=== PATIENT | male | born 1995 | race Caucasian/White ===

== ENCOUNTER 2021-12-08 09:38 | Day surgery (SDC) | payer OTHER ==
[2021-12-08 10:32] LABS: BASOPHILS # (AUTO) 0.1 10^3/uL (0.0-0.1); BASOPHILS % (AUTO) 0.4 %; EOSINOPHILS # (AUTO) 0.1 10^3/uL (0.0-0.7); EOSINOPHILS % (AUTO) 0.3 %; HCT - HEMATOCRIT 46.8 % (42.0-52.0); HGB - HEMOGLOBIN 16.1 g/dL (14.0-18.0); LYMPHOCYTES # (AUTO) 1.2 10^3/uL (1.5-3.5); LYMPHOCYTES % (AUTO) 5.8 %; MEAN CORPUSCULAR HEMOGLOBIN 30.3 pg (27.0-31.0); MEAN CORPUSCULAR HGB CONC 34.4 g/dL (32.0-36.0); MEAN PLATELET VOLUME 9.3 fL (7.4-11.4); MONOCYTES # (AUTO) 0.8 10^3/uL (0.0-1.0); MONOCYTES % (AUTO) 3.7 %; NEUTROPHILS # (AUTO) 18.4 10^3/uL (1.5-6.6); NEUTROPHILS % (AUTO) 89.3 %; PLT - PLATELET COUNT 301 10^3/uL (130-450); RED BLOOD COUNT 5.32 10^6/uL (4.70-6.10); RED CELL DISTRIBUTION WIDTH 12.7 % (12.0-15.0); WHITE BLOOD COUNT 20.6 x10^3/uL (4.8-10.8)
[2021-12-08 10:33] LABS: SLIDE REVIEW? Indicated
[2021-12-08 10:46] LABS: ALBUMIN 5.1 g/dL (3.2-5.5); ALBUMIN/GLOBULIN RATIO 1.5 (1.0-2.2); BILIRUBIN,TOTAL 0.9 mg/dL (0.2-1.0); CALCIUM 9.8 mg/dL (8.5-10.3); CREATININE 0.9 mg/dL (0.6-1.2); TOTAL PROTEIN 8.4 g/dL (6.7-8.2)
[2021-12-08 11:02] LABS: PLATELET ESTIMATE, MANUAL NORMAL (130-450,000) (NORMAL); PLATELET MORPHOLOGY NORMAL APPEARANCE (NORMAL); RBC MORPHOLOGY (MULTIPLE) NORMAL APPEARANCE (NORMAL)
[2021-12-08] MEDS ORDERED: ONDANSETRON 4 MG/2 ML VIAL IVP STA (12:42)
[2021-12-08] MEDS ORDERED: HYDROmorphone 1 MG/ML CARPUJECT IVP STA ×2 (12:42→15:12)
[2021-12-08] MEDS ORDERED: SODIUM CHLORIDE 0.9% 1,000 ML IV STA (12:42)
--- NOTE | 2021-12-08 12:42 | ED Physician Documentation ---
History of Present Illness - Stated complaint Stated Complaint: ABD PX - Chief complaint Chief Complaint: Abd Pain - Additonal information Additional information: 18-year-old male presents emergency department for evaluation of sudden onset epigastric abdominal pain that radiates to the right lower quadrant. Symptoms began about 6 AM. No history of similar. Patient states he woke up went to drink water and noted that he had pain in his upper abdomen. He immediately vomited the water. Over the course of symptoms the epigastric pain has resolved but now he has a persistent pain in the right lower quadrant. He has been unable to keep anything down. No diarrhea. No history of similar. No pertinent past surgical history. Takes no prescribed medications. Review of Systems Constitutional: reports: Reviewed and negative Ears: reports: Reviewed and negative Nose: reports: Reviewed and negative Cardiac: reports: Reviewed and negative Respiratory: reports: Reviewed and negative GI: reports: Abdominal Pain, Nausea : reports: Reviewed and negative Skin: reports: Reviewed and negative PD PAST MEDICAL HISTORY - Present Medications Home Medications: Ambulatory Orders Medication Instructions Recorded Confirmed No Known Home Medications 12/08/21 12/08/21 - Allergies Allergies/Adverse Reactions: Allergies Allergy/AdvReac Type Severity Reaction Status Date / Time No Known Drug Allergies Allergy Verified 12/08/21 10:07 PD ED PE NORMAL - General General: Alert and oriented X 3, No acute distress - HEENT HEENT: Atraumatic, Ears normal, Moist mucous membranes - Neck Neck: Supple, no meningeal sign, No adenopathy - Cardiac Cardiac: RRR, No murmur - Respiratory Respiratory: No respiratory distress - Abdomen Abdomen: Normal bowel sounds, Soft, Non distended. No: Non tender (Equivocal McBurney's. ) - Back Back: No CVA TTP, No spinal TTP - Derm Derm: Normal color, Warm and dry, No rash - Extremities Extremities: No deformity - Neuro Neuro: Alert and oriented X 3, customer resource specialist 2-12 intact Eye Opening: Spontaneous Motor: Obeys Commands Verbal: Oriented GCS Score: 15 - Psych Psych: Normal mood Results - Vitals Vitals: Vital Signs - 24 hr 12/08/21 12/08/21 10:03 13:05 Temperature 36.3 C L Heart Rate 70 81 Respiratory 17 18 Rate Blood Pressure 141/95 H 162/80 H O2 Saturation 97 98 Oxygen O2 Source Room air - Labs Labs: Laboratory Tests 12/08/21 12/08/21 12/08/21 10:29 10:29 12:02 WBC 20.6 H RBC 5.32 Hgb 16.1 Hct 46.8 MCV 88.0 MCH 30.3 MCHC 34.4 RDW 12.7 Plt Count 301 MPV 9.3 Neut # (Auto) 18.4 H Lymph # (Auto) 1.2 L [place] # (Auto) 0.8 Eos # (Auto) 0.1 Baso # (Auto) 0.1 Absolute Nucleated RBC 0.00 Nucleated RBC % 0.0 Manual Slide Review Indicated WBC Morphology Platelet Estimate NORMAL (130-450,000) Platelet Morphology NORMAL APPEARANCE RBC Morph Micro Appear NORMAL APPEARANCE Sodium 140 Potassium 4.0 Chloride 104 Carbon Dioxide 26 Anion Gap 10.0 BUN 11 Creatinine 0.9 Estimated GFR (MDRD) 100 Glucose 120 H Calcium 9.8 Total Bilirubin 0.9 AST 37 ALT 88 H Alkaline Phosphatase 52 Total Protein 8.4 H Albumin 5.1 Globulin 3.4 Albumin/Globulin Ratio 1.5 Lipase 32 Urine Color YELLOW Urine Clarity CLEAR Urine pH 6.0 Ur Specific [place] >=1.030 H Urine Protein NEGATIVE Urine Glucose (UA) NEGATIVE Urine Ketones >=80 H Urine Occult Blood NEGATIVE Urine Nitrite NEGATIVE Urine Bilirubin NEGATIVE Urine Urobilinogen 0.2 (NORMAL) Ur Leukocyte Esterase NEGATIVE Ur Microscopic Review NOT INDICATED Urine Culture Comments NOT INDICATED - Rads (name of study) CT of the abdomen Radiology: Final report received (Acute appendicitis. ) PD MEDICAL DECISION MAKING - ED course Complexity details: reviewed results, re-evaluated patient, considered differential, d/w patient, d/w sap bw consultant (Kendrick) ED course: 18-year-old male presents emergency department for evaluation of acute epigastric pain that radiated to his right lower quadrant. Symptoms began about 6 AM when he attempted to drink water when he woke up. He attempted to drink water about 1 hour later but continued to vomit and with the lower quadrant pain then presented to the emergency department. On exam he has an equivocal McBurney's. CBC shows modest leukocytosis of 20,000. CT scan showed an acute uncomplicated appendicitis. I briefly discussed this case with on-call surgeon Dr. Hughes who is able to take this patient to surgery later this afternoon. The patient remains n.p.o. since early this a.m. COVID-19 is pending. We have ordered 1 dose of Zosyn as well as IV Tylenol. Pain is improved and the patient after receiving Dilaudid and Zofran. He and his partner were made aware of the clinical findings and plan to operate. Further care to be dictated by the OR staff Departure - Departure Disposition: ED Transfer to [facility] Clinical Impression: Acute appendicitis Qualifiers: Acute appendicitis type: unspecified acute appendicitis type Qualified Code(s): K35.80 - Unspecified acute appendicitis
[2021-12-08 13:04] LABS: BILIRUBIN,URINE NEGATIVE (NEGATIVE); GLUCOSE, URINE (UA) NEGATIVE (NEGATIVE); KETONES,URINE (UA) >=80 mg/dL (NEGATIVE); LEUKOCYTE ESTERASE, URINE NEGATIVE (NEGATIVE); NITRITE,URINE NEGATIVE (NEGATIVE); OCCULT BLOOD,URINE NEGATIVE (NEGATIVE); PROTEIN,URINE NEGATIVE (NEGATIVE); UROBILINOGEN,URINE 0.2 (NORMAL) E.U./dL (NORMAL)
[2021-12-08 13:06] LABS: CLARITY,URINE CLEAR (CLEAR)
--- NOTE | 2021-12-08 13:51 | CT Report ---
PROCEDURE: Abdomen/Pelvis W INDICATIONS: RLQ pain CONTRAST: IV CONTRAST: Optiray 320 ml: 100 PO CONTRAST: *NO PO CONTRAST TECHNIQUE: After the administration of IV contrast, 5 mm thick sections acquired from the diaphragms to the symp hysis. 5 mm thick coronal and sagittal reformats were acquired. For radiation dose reduction, the f ollowing was used: automated exposure control, adjustment of mA and/or kV according to patient size. COMPARISON: None. FINDINGS: Image quality: Excellent. ABDOMEN: Lung bases: Lung bases are clear. Heart size is normal. Solid organs: Liver and spleen are normal in size and enhancement. Gallbladder is within normal [place] its Biliary system is non dilated. Pancreas enhances normally. No adrenal nodules. Kidneys demons trate normal size and enhancement, without hydronephrosis. Peritoneum and bowel: Bowel loops demonstrate normal wall thickness and caliber. The appendix is di stended, measuring 10 mm and demonstrates mild surrounding fat stranding as well as mural hyperemia N o free fluid or air. Nodes and vessels: No retroperitoneal or mesenteric adenopathy by size criteria. Aorta and inferior vena cava are normal in size. Miscellaneous: No ventral hernias. PELVIS: Genitourinary: Bladder wall thickness is normal. Miscellaneous: No inguinal hernias or adenopathy. Bones: No suspicious bony lesions. Bilateral L5-S1 pars interarticularis defects. Minimal grade 1 an terolisthesis of L5 on S1. No vertebral body compression fractures. IMPRESSION: 1. Acute appendicitis. Findings discussed with Shani in the ER on 12/08/2021 at 1348 hours. She unders tood the urgent nature of the findings and agreed to communicate them to Dr. Avila assessment is p ossible. 2. Grade 1 isthmic spondylolisthesis at L5-S1. Reviewed by: Richard Fajardo MD on 12/08/2021 1:50 PM PDT Approved by: Richard Fajardo MD on 12/08/2021 1:50 PM PDT Station ID: [id number]
[2021-12-08] MEDS ORDERED: PIPERACILLIN/TAZOBACTAM 3.375 GM in SODIUM CHLORIDE 0.9% MINIBAG 100 ML IV STA (14:03)
[2021-12-08] MEDS ORDERED: ACETAMINOPHEN 1,000 MG/100 ML 1,000 MG/100 ML BAG IV ONE (14:08)
--- NOTE | 2021-12-08 15:02 | SURGERY HX AND PHYSICAL(T) ---
Surgical History & Physical - Chief Complaint/HPI Chief Complaint: abdominal pain History of Present Illness: This is a very pleasant 26-year-old gentleman who reports acute onset abdominal pain that woke him from sleep at approximately 3 AM this morning. At that time, the pain was epigastric and sharp in nature. He woke up again about an hour later with periumbilical pain and again went back to sleep. At approximately 5 AM, the patient woke up and had a sip of water. He then had nausea and immediately vomited up the water that he had drank. About an hour after that he reports waking up and doing the same thing again, drinking water and vomiting. At that time, he noted the pain had migrated to his right lower quadrant and had become more severe. He also noted that he was feeling chilled. He had a bowel movement this morning which was normal for him and did not contain any blood. He denies any recent sick contacts. He has never had similar pain in the past. - PMH/PSH/Social Hx Does the pt have a hx of MRSA?: No Neurological History: None Eyes, Ears, Nose, Throat: None Cardiovascular: None Respiratory: None Skin: None Endocrine/Autoimmune: None Gastrointestinal: None Urinary: None Musculoskeletal: None Blood Disorders: None Psychiatric: None Smoking Status: Never smoker Does the pt drink ETOH?: Yes Frequency: Occasional Does the pt have substance abuse?: Yes Substance Use and Type: Marijuana - Family Hx Family Hx: Unremarkable, Other (Dad: Multiple sclerosis No family history of colon cancer or inflammatory bowel disease.) - Home Meds and Allergies Home Medications: No Known Home Medications 12/08/21 Allergies/Adverse Reactions: Allergies Allergy/AdvReac Type Severity Reaction Status Date / Time No Known Drug Allergies Allergy Verified 12/08/21 10:07 - Review of Systems Constitutional: Other (A complete 10 point review of symptoms is otherwise negative except for that noted in HPI and PMH.) - Vital Signs Heart Rate: 81 Blood Pressure: 162/80 Temperature: 36.3 C Respiratory Rate: 18 O2 Saturation: 98 Weight (kg): 140.614 kg Height: 1.89 m - Physical Exam General Appearance: positive: No acute distress, Alert Eyes Bilatera: positive: Normal inspection ENT: positive: ENT inspection nml Neck: positive: Nml inspection Respiratory: positive: Chest non-tender, No respiratory distress Cardiovascular: positive: Regular rate & rhythm, No murmur Peripheral Pulses: positive: 2+ Abdomen: positive: No distention, Tenderness (Positive Rovsing, exquisite right lower quadrant tenderness to palpation over McBurney's point.), Guarding (Voluntary), Other (Obese). negative: Rebound, Mass Skin: positive: Color nml Extremities: positive: Non-tender Neurologic/Psychiatric: positive: Oriented x3 - Patient Review Patient Review: Problems were reviewed with the patient during this visit. Medications were reviewed with the patient during this visit. Allergies were reviewed this patient during this visit. Pertinent Tests Reviewed: All pertitent test for this patient were reviewed. - Assessment & Plan Assessment and Plan: This is a 26-year-old male with: 1. Acute appendicitis The patient's history, physical exam, laboratory studies, and imaging are consistent with acute appendicitis. He does not have any signs of perforation on the CT scan. I have personally reviewed the images and report from his CT scan. I discussed these findings with the patient. We discussed the risks, benefits, and alternatives of laparoscopic appendectomy including bleeding, infection, damage to surrounding structures, and the need for further surgeries or procedures. The patient voiced understanding, his questions were answered, and he wished to proceed with surgery. We also discussed the postoperative plan, and the possibility of abscess with or without surgery. A consent was signed by the patient in the preoperative area. The patient has been given preoperative antibiotics and ERS protocol. The patient has been n.p.o. since approximately 7 AM today The plan is for emergent laparoscopic appendectomy. Postoperatively, we will determine the need for postoperative antibiotics depending on whether or not the patient's appendix is ruptured. I anticipate he will be able to discharge home this evening.
[2021-12-08] MEDS ORDERED: LACTATED RINGERS 1,000 ML IV ONE ×2 (15:14→18:13)
[2021-12-08] MEDS ORDERED: HYDROmorphone 1 MG/ML CARPUJECT ONE (15:22)
--- NOTE | 2021-12-08 15:38 | ANESTHESIA ---
Pre-Anesthesia VS, & Labs - Diagnosis appendicitis - Procedure laparoscopic appendectomy Vital Signs: Temp Pulse Resp BP Pulse Ox O2 Flow Rate 36.4 C L 72 16 153/81 H 98 12/08/21 15:15 12/08/21 15:15 12/08/21 15:15 12/08/21 15:15 12/08/21 15:15 Height: 6 ft 2 in Weight (kg): 140 kg Body Mass Index: 39.6 BMI Classification: Obese - NPO >8 hours - Lab Results Current Lab Results: Laboratory Tests 12/08/21 10:29: Sodium 140, Potassium 4.0, Chloride 104, Carbon Dioxide 26, Anion Gap 10.0, BUN 11, Creatinine 0.9, Estimated GFR (MDRD) 100, Glucose 120 H, Calcium 9.8, Total Bilirubin 0.9, AST 37, ALT 88 H, Alkaline Phosphatase 52, Total Protein 8.4 H, Albumin 5.1, Globulin 3.4, Albumin/Globulin Ratio 1.5, Lipase 32 12/08/21 10:29: WBC 20.6 H, RBC 5.32, Hgb 16.1, Hct 46.8, MCV 88.0, MCH 30.3, MCHC 34.4, RDW 12.7, Plt Count 301, MPV 9.3, Neut # (Auto) 18.4 H, Lymph # (Auto) 1.2 L, [place] # (Auto) 0.8, Eos # (Auto) 0.1, Baso # (Auto) 0.1, Absolute Nucleated RBC 0.00, Nucleated RBC % 0.0, Manual Slide Review Indicated, WBC Morphology , Platelet Estimate NORMAL (130-450,000), Platelet Morphology NORMAL APPEARANCE, RBC Morph Micro Appear NORMAL APPEARANCE Fish Bones: 12/08/21 10:29 12/08/21 10:29 Home Medications and Allergies Home Medications: Ambulatory Orders No Known Home Medications 12/08/21 No Known Home Medications 12/08/21 Allergies/Adverse Reactions: Allergies Allergy/AdvReac Type Severity Reaction Status Date / Time No Known Drug Allergies Allergy Verified 12/08/21 10:07 Anes History & Medical History - Anesthetic History Anesthesia Complications: reports: No previous complications - Medical History Cardiovascular: reports: None Pulmonary: reports: None Gastrointestinal: reports: None Urinary: reports: None Neuro: reports: None Musculoskeletal: reports: None Endocrine/Autoimmune: reports: None Blood Disorders: reports: None Skin: reports: None Smoking Status: Never smoker Psychosocial: reports: Alcohol (once a week) History of Cancer?: No Exam General: Alert, Oriented x3, Cooperative Dental: WNL Mouth Opening: Greater than 4 Fingerbreadths Neck Mobility: Normal Mallampati classification: I Respiratory: Lungs clear Cardiovascular: Regular rate Plan Anesthesia Type: General Consent for Procedure(s) Verified and Reviewed: Yes Code Status: Attempt Resuscitation ASA classification: 2-Mild systemic disease Is this case an emergency?: Yes
[2021-12-08] MEDS ORDERED: ePHEDrine 50 MG/ML VIAL IVP PRN (15:39)
[2021-12-08] MEDS ORDERED: NALOXONE 0.4 MG/ML VIAL IVP PRN (15:39)
[2021-12-08] MEDS ORDERED: MORPHINE 2 MG/ML CARPUJECT IVP PRN (15:39)
[2021-12-08] MEDS ORDERED: fentaNYL 100 MCG/2 ML VIAL IVP PRN (15:39)
[2021-12-08] MEDS ORDERED: METOCLOPRAMIDE 10 MG/2 ML VIAL IVP PRN (15:39)
[2021-12-08] MEDS ORDERED: ATROPINE ABBOJECT 1 MG/10 ML SYRINGE IVP PRN (15:39)
[2021-12-08] MEDS ORDERED: HYDROmorphone 0.5 MG/0.5 ML SYRINGE IVP PRN ×2 (15:39→18:20)
[2021-12-08] MEDS ORDERED: ONDANSETRON 4 MG/2 ML VIAL IVP PRN ×2 (15:39→18:20)
[2021-12-08] MEDS ORDERED: LACTATED RINGERS 1,000 ML IV SCH (16:00)
[2021-12-08] MEDS ORDERED: ROCURONIUM 50 MG/5 ML VIAL ONE (16:06)
[2021-12-08] MEDS ORDERED: PROPOFOL 200 MG/20 ML VIAL IVP ONE ×2 (16:06→17:26)
[2021-12-08] MEDS ORDERED: LIDOCAINE MPF 2%-EPI 1:200000 20 ML VIAL ONE (16:07)
[2021-12-08] MEDS ORDERED: BUPIVACAINE 0.25% PF 10 ML VIAL ONE (16:07)
[2021-12-08] MEDS ORDERED: fentaNYL 100 MCG/2 ML VIAL ONE ×2 (16:08→17:10)
[2021-12-08] MEDS ORDERED: MIDAZOLAM 2 MG/2 ML VIAL ONE (16:08)
[2021-12-08] MEDS ORDERED: ONDANSETRON 4 MG/2 ML VIAL ONE (17:26)
[2021-12-08] MEDS ORDERED: KETOROLAC 30 MG/ML VIAL ONE (17:44)
[2021-12-08] MEDS ORDERED: SUGAMMADEX 200 MG/2 ML VIAL IVP ONE (17:54)
[2021-12-08] MEDS ORDERED: HYDROcod/ACETAM 5/325 MG TABLET PO PRN (18:20)
--- NOTE | 2021-12-08 18:26 | OPERATIVE REPORT ---
Operative Report - General Procedure Date: 12/08/21 Planned Procedure: laparoscopic appendectomy Pre-Op Diagnosis: acute appendicitis Procedure Performed: laparoscopic appendectomy Post Op Diagnosis: acute, non perforated appendicitis - Procedure Note Primary Surgeon: Dr. Laxmi Marks Anesthesia Provider: Sammi Rainey CRNA Anesthesia Technique: General ET tube, Local Pathology: appendix, sent to pathology Estimated Blood Loss (mL): 20 Urine Output (mL): 500 Indications: The patient's had about 12 hours of acute onset abdominal pain that began in the epigastric region and migrated to the right lower quadrant. His laboratory studies, physical exam, and imaging in the emergency department are consistent with nonperforated acute appendicitis. The patient was seen and evaluated. I discussed the risks, benefits, and alternatives of laparoscopic appendectomy including bleeding, infection, damage to surrounding structures, and the need for further surgeries or procedures. The patient voiced understanding, his questions were answered, and he wished to proceed. PAR-Q. A consent was signed by the patient prior to surgery. Findings: 1.Acute, nonperforated appendicitis Complications: None - Other Other Information/Narrative: The patient was brought to the operative suite and placed in the supine position. General endotrachealanesthesia was induced. A Henderson catheter was placed. Preoperative antibiotics were given. ERAS protocol was not followed due to the patient's pre op nausea. A preop surgical timeout was performed. Local anesthetic was injected into the skin and subcutaneous tissues just superior to the umbilicus. An 11 blade scalpel was used to make a 5 mm transverse skin incision in this location. Next, a hemostat was used to spread the tissues down to the level of the fascia and a Ash clamp was used to grasp and elevate the umbilical stalk. In order to adequately grasp and elevate the fascia, the skin incision had to be increased in size. A Varess needle was used to gain access to the peritoneal space. Low flow insufflation revealed low pressures and then high flow insufflation was undertaken to 15 mmHg. Next, the Varess needle was removed and a 5 mm laparoscopic port was inserted in this location. Through this port, a 5 mm 30 degree laparoscope was inserted. On inspection of the abdomen no injury was caused on entry. Next, the patient was placed in Trendelenburg and rotated slightly to the left. 2 more ports were inserted. A 5 mm port was inserted in the suprapubic region, and a 12 mm port was inserted in the left lower quadrant. Both ports were placed by first anesthetizing the skin and subcutaneous tissues with local anesthetic, then by making an appropriate length incision with an 11 blade scalpel, and finally by placing the port under direct laparoscopic vision. Once the ports were in place, 2 atraumatic graspers were used to identify the area of concern. The appendix, terminal ileum, and cecum were adhered to eachother and the anterior abdominal wall. There was extensive inflammation. Gentle dissection with the suction tip and atraumatic graspers was used to isolate the appendix from the surrounding tissues. A window was made at the base of the appendix in the mesoappendix using a [place] grasper. Next, a 45 cm laparoscopic stapler with a white load was used to come across the mesoappendix. The appendiceal artery was bleeding and was clipped with a ligaclip. Then, the base of the appendix was divided with the stapler, using a blue load. Great care was taken to ensure that only the base of the appendix was within the jaws of the stapler and then it was fired. There was a small amount of blood near the staple line. This was suctioned free and hemostasis was confirmed. Next, the appendix was placed in an Endo Catch bag and removed through the left lower quadrant port. The left lower quadrant port was then reinserted. Again, the staple lines were inspected and noted to be hemostatic. Next, attempted to close the left lower quadrant port using a laparoscopic fascial closure device but due to the patient's size, this was unsuccessful. Instead, an open approach was used to place a single, interrupted 0 Vicryl suture in the fascia at the left lower quadrant port. This reapproximated the fascia well. The remaining ports were removed under direct laparoscopic vision and the abdomen was deflated. Next, the skin edges were reapproximated with 4-0 Monocryl in an interrupted subcuticular fashion. A sterile dressing of skin glue was placed. The Henderson catheter was removed at the end of the case. The patient was extubated in the operating room and transferred to the recovery room in stable condition. There were no complications.
--- NOTE | 2021-12-08 18:49 | ANESTHESIA POST OP EVALUATION ---
Anesthesia Post Eval - Post Anesthesia Eval Vitals: Last Vital Signs Temp 36.2 C L 12/08/21 18:47 Pulse 87 12/08/21 18:47 Resp 20 12/08/21 18:47 BP 113/62 12/08/21 18:47 Pulse Ox 100 12/08/21 18:47 O2 Flow Rate CV Function Including HR & BP: Stable Pain Control: Satisfactory Nausea & Vomiting: Negative Mental Status: Baseline Respiratory Status: Airway Patent Hydration Status: Satisfactory Anesthesia Complications: None
[2021-12-08] MEDS ORDERED: HYDROcod/ACET 5/325 Prepack 4 PO STA (20:28)
[2021-12-08 20:44] VITALS: BP 110/78
== END 2021-12-08 21:20 | disposition home or self-care (01) ==
LOC: ED 09:38 → SDS 16:32 → MS2 17:55 → SDS 21:20
PROVIDERS: ATTEND Surgery
PROC: 0DTJ4ZZ Resection of Appendix, Percutaneous Endoscopic Approach (ICD-10-PCS; principal; 2021-12-08 16:00)
DX: K35.80 Unspecified acute appendicitis (principal); E66.9 Obesity, unspecified; Z20.822 Contact with and (suspected) exposure to COVID-19; Z68.39 Body mass index [BMI] 39.0-39.9, adult
CPT/HCPCS: 36415; 44970; 74177; 80053; 81003; 83690; 85025; 87635; 96365; 96367; 96375; 96376; 99284; 99285; A9270; J0131; J1170; J7120; Q9967; 81001; 87086

== ENCOUNTER 2022-08-24 18:49 | Emergency (ER) | payer OTHER ==
[2022-08-24 19:06] VITALS: BP 147/77
[2022-08-24] MEDS ORDERED: TETANUS/DIPHTHERIA/PERTUSSIS 0.5 ML SYRINGE IM ONE (19:17)
--- NOTE | 2022-08-24 19:19 | ED Physician Documentation ---
History of Present Illness - Stated complaint Stated Complaint: HEAD LAC - Chief complaint Chief Complaint: Laceration - History obtained from History obtained from: Patient (He fell this afternoon and his glasses cut his right eyebrow area. He has a mild headache. Did not lose consciousness. He was sent up from the walk-in clinic as he has developed some raccoon eyes. Tetanus is unknown.) PD PAST MEDICAL HISTORY - Past Medical History Cardiovascular: None Respiratory: None Neuro: None Endocrine/Autoimmune: None GI: None : None HEENT: None Psych: None Musculoskeletal: None Derm: None - Past Surgical History Past Surgical History: No - Present Medications Home Medications: Ambulatory Orders Medication Instructions Recorded Confirmed No Known Home Medications 08/24/22 08/24/22 - Allergies Allergies/Adverse Reactions: Allergies Allergy/AdvReac Type Severity Reaction Status Date / Time No Known Drug Allergies Allergy Verified 08/24/22 19:02 - Social History Does the pt smoke?: No Smoking Status: Never smoker Does the pt drink ETOH?: Yes Does the pt have substance abuse?: Yes - Immunizations Immunizations are current?: Yes - POLST Patient has POLST: No PD ED PE NORMAL - Vitals Vital signs reviewed: Yes - General General: Alert and oriented X 3, No acute distress - HEENT HEENT: PERRL, EOMI, Other (Mild raccoon eyes, 1 cm shallow laceration of the right supraorbital area.) - Neck Neck: Supple, no meningeal sign, No bony TTP - Cardiac Cardiac: RRR, No murmur, Other (Mild tenderness of the sternum) - Respiratory Respiratory: No respiratory distress, Clear bilaterally - Neuro Neuro: Alert and oriented X 3, Normal speech Eye Opening: Spontaneous Motor: Obeys Commands Verbal: Oriented GCS Score: 15 Results - Vitals Vitals: Vital Signs - 24 hr 08/24/22 18:51 Temperature 36.2 C L Heart Rate 79 Respiratory 18 Rate Blood Pressure 147/77 H O2 Saturation 100 Oxygen O2 Source Oxymask - Rads (name of study) 2 view chest x-ray is unremarkable Relevant Findings:: Final report received, EMP independent interpretation of test CT of the head is unremarkable Relevant Findings:: Final report received, EMP independent interpretation of test Procedures - Laceration (location) Right supraorbital Length in cm: 1.5 Wound type: Superficial Wound preparation: Irrigated copiously NS Skin layer closure: Dermabond Other: Tetanus booster given PD Medical Decision Making - ED course ED course: Note for MIPS review, he does have possible signs of basilar skull fracture "raccoon eyes" Departure - Departure Disposition: 01 Home, Self Care Clinical Impression: Sternal contusion Qualifiers: Encounter type: initial encounter Qualified Code(s): S20.219A - Contusion of unspecified front wall of thorax, initial encounter Facial laceration Qualifiers: Encounter type: initial encounter Qualified Code(s): S01.81XA - Laceration without foreign body of other part of head, initial encounter Fall Qualifiers: Encounter type: initial encounter Qualified Code(s): W19.XXXA - Unspecified fal l, initial encounter Condition: Good Record reviewed to determine appropriate education?: Yes Instructions: ED Contusion Chest Wall, ED Laceration Facial Skin Glue
--- NOTE | 2022-08-24 19:46 | XRAY Report ---
PROCEDURE: Chest 2 View X-Ray INDICATIONS: chest inj TECHNIQUE: 2 views of the chest were acquired. COMPARISON: None. FINDINGS: Surgical changes and devices: None. Lungs and pleura: No pleural effusions or pneumothorax. Lungs are clear. Mediastinum: Mediastinal contours appear normal. Heart size is normal. Bones and chest wall: No suspicious bony lesions. Overlying soft tissues appear unremarkable. IMPRESSION: No acute process. Reviewed by: Richard Fajardo MD on 08/24/2022 7:44 PM PDT Approved by: Richard Fajardo MD on 08/24/2022 7:44 PM PDT Station ID: [id number]
--- NOTE | 2022-08-24 20:34 | CT Report ---
PROCEDURE: HEAD WO INDICATIONS: head inj TECHNIQUE: Noncontrast 4.5 mm thick angled axial sections acquired from the foramen magnum to the vertex. For r adiation dose reduction, the following was used: automated exposure control, adjustment of mA and/or kV according to patient size. COMPARISON: None. FINDINGS: Image quality: Excellent. CSF spaces: Basal cisterns are patent. No extra-axial fluid collections. Ventricles are normal in size and shape. Brain: No intracranial hemorrhage, mass, or mass effect. Chamberlain-white matter interface appears preser cony. Skull and face: Calvarium and visualized facial bones are intact, without suspicious lesions. Sinuses: Visualized sinuses and mastoids are clear. IMPRESSION: 1. No acute intracranial abnormality. Reviewed by: Anmol Norton MD on 08/24/2022 8:32 PM PDT Approved by: Anmol Norton MD on 08/24/2022 8:32 PM PDT Station ID: [id number]
== END 2022-08-24 20:42 | disposition home or self-care (01) ==
LOC: ED 18:49
DX: S01.81XA Laceration without foreign body of other part of head, initial encounter (principal); S20.219A Contusion of unspecified front wall of thorax, initial encounter; W19.XXXA Unspecified fall, initial encounter; W26.9XXA Contact with unspecified sharp object(s), initial encounter; Z23 Encounter for immunization
CPT/HCPCS: 12001; 90471; 99283; 99284